=== PATIENT | female | born 1960 | race Caucasian/White ===

== ENCOUNTER 2016-11-01 17:21 | Emergency (ER) | payer BC ==
[2016-11-01 19:58] VITALS: BP 134/90
--- NOTE | 2016-11-01 20:31 | RAD ---
CLINICAL HISTORY: Hematuria and flank pain COMPARISON: Similar CT examination dated March 28, 2013 TECHNIQUE: Noncontrast CT examination of the abdomen and pelvis from the lung bases through the initial tuberosities. FINDINGS: VISUALIZED LUNG BASES: The visualized lung bases are grossly clear. There is no pleural effusion. ABDOMEN AND PELVIS: Evaluation of the solid organs and vasculature is limited without intravenous contrast. The liver, spleen, pancreas and adrenal glands are grossly normal in appearance. The gallbladder is normal. At the lower pole of the right kidney there is a 4 mm calcification. There is no right-sided hydroureter nephrosis. No renal calculi are identified in the right ureter or expected location of the ureter where it is not confidently visualized. At the left ureteropelvic junction (coronal image 50 of 92) there is a 5 mm calcification with very mild hydronephrosis on the left. There is an additional nonobstructing renal calculi in the lower pole collecting system. Distal to this the ureter is normal and there are no calculi in the urinary bladder lumen. The small and large bowel are not distended. There is no gross retroperitoneal or mesenteric lymphadenopathy. Multiple calcifications in the uterus are most consistent with chronic calcified fibroid. The abdominal aorta and iliac arteries are normal in course and diameter. Degenerative changes include multilevel loss of intervertebral disc height involving the lower thoracic and lumbar spine.There are no sinister bone lesions. IMPRESSION: 1. At the left ureteropelvic junction there is a 5 mm calcification with mild ipsilateral hydronephrosis. 2. Additional nonobstructing renal calculi are seen in the bilateral kidneys. 3. Chronic and degenerative findings as described in the body of the report.
[2016-11-01] MEDS ORDERED: Acetaminophen Codeine #4 (300 mg/60 mg) (NF) TAB PO PRN (20:41)
[2016-11-01] MEDS ORDERED: Ondansetron ODT TAB* 4 MG PO ONE (20:41)
[2016-11-01] MEDS ORDERED: Tamsulosin CAP* 0.4 MG PO ONE (20:46)
[2016-11-01] MEDS ORDERED: Acetaminop/Codeine 30 MG TAB* 1 TAB (300 MG/30 MG) PO ONE (20:47)
--- NOTE | 2016-11-01 20:50 | UC ---
Complaint Female HPI - HPI Summary HPI Summary: Patient has had increase urination, BISHOP, back pain , significant last night. has had kidney stones in the past, did have a large amount of blood in urine this morgning. - History Of Current Complaint Chief Complaint: UCGU Stated Complaint: URINARY Time Seen by Provider: 11/01/16 19:39 Hx Obtained From: Patient Hx Last Menstrual Period: ablation ?: No Onset/Duration: Sudden Onset, Lasting Days Timing: Intermittent, Lasting Hours Severity Initially: Moderate Severity Currently: Moderate Pain Intensity: 5 Pain Scale Used: 0-10 Numeric Character: Sharp, Dull, Burning Aggravating Factor(s): Movement, Urination Alleviating Factor(s): Position Associated Signs And Symptoms: Positive: Back Pain - Risk Factors Ectopic Risk Factor: Negative Ovarian Torsion Risk Factor: Negative - Allergies/Home Medications Allergies/Adverse Reactions: Allergies Allergy/AdvReac Type Severity Reaction Status Date / Time Oxycodone Allergy Severe Vomiting Verified 11/01/16 19:50 Penicillins Allergy Unknown Unknown Verified 11/01/16 19:50 Reaction Details Home Medications: Home Medications Biotin 5,000 mcg PO DAILY 11/01/16 [History Confirmed 11/01/16] Flaxseed (Linseed) [Flax Seed Oil 1000 mg] 1 cap PO DAILY 11/01/16 [History Confirmed 11/01/16] Phentermine HCl [Adipex-P] 37.5 mg PO DAILY 11/01/16 [History Confirmed 11/01/16 ] PMH/Surg Hx/FS Hx/Imm Hx Previously Healthy: Yes Cardiovascular History Of: Reports: Cardiac Disorders - MVP Denies: Hypertension Respiratory History Of: Reports: Asthma - Surgical History Surgical History: Yes Surgery Procedure, Year, and Place: Tonsillectomy,uterine embolization - Family History Known Family History: Positive: Hypertension - Social History Alcohol Use: Occasionally Substance Use Type: None Smoking Status (MU): Never Smoked Tobacco - Immunization History Most Recent Influenza Vaccination: 2886-1635 Review of Systems Constitutional: Fatigue Skin: Negative Eyes: Negative ENT: Negative Respiratory: Negative Cardiovascular: Negative Gastrointestinal: Negative, Other Genitourinary: Negative, Dysuria, Frequency, Urgency, Other - back pain Motor: Negative Neurovascular: Negative Musculoskeletal: Myalgia Neurological: Negative Psychological: Negative All Other Systems Reviewed And Are Negative: Yes Physical Exam Triage Information Reviewed: Yes Appearance: Well-Nourished, Ill-Appearing, Pain Distress Vital Signs: Initial Vital Signs Temp 99.3 F 11/01/16 19:51 Pulse 85 11/01/16 19:51 Resp 16 11/01/16 19:51 BP 134/90 11/01/16 19:51 Pulse Ox 98 11/01/16 19:51 Vital Signs Reviewed: Yes Eye Exam: Normal Eyes: Positive: Conjunctiva Clear ENT Exam: Normal ENT: Positive: Normal ENT inspection, Hearing grossly normal, Pharynx normal, TMs normal Dental Exam: Normal Neck exam: Normal Neck: Positive: Supple, Nontender, No Lymphadenopathy Respiratory Exam: Normal Respiratory: Positive: Chest non-tender, Lungs clear, Normal breath sounds Cardiovascular Exam: Normal Cardiovascular: Positive: RRR, No Murmur, Pulses Normal Abdomen Description: Positive: Nontender, No Organomegaly, Soft, CVA Tenderness (L) Bowel Sounds: Positive: Present Musculoskeletal Exam: Normal Musculoskeletal: Positive: Strength Intact, ROM Intact, No Edema Neurological Exam: Normal Neurological: Positive: Alert, Muscle Tone Normal Psychological Exam: Normal Skin Exam: Normal Complaint Female Dx - Course Course Of Treatment: hx obtained, exam performed, UA pos for blood, CT obtained , see report, recommend she follow up with her urologist tomorrow. meds given for pain, nausea. - Differential Dx/Diagnosis Differential Diagnosis/HQI/PQRI: Retained Foreign Body, Ureteral Stone, Urinary Tract Infection Provider Diagnoses: renal calculi. ipsilateral hydronephrosis, left Discharge - Discharge Plan Condition: Stable Disposition: HOME Prescriptions: Acetaminop/Codeine 30 MG TAB* [Tylenol/Codeine 30 MG TAB*] 1 - 2 tab PO Q6H PRN #30 tab MDD 8 tabs PRN Reason: Pain Prochlorperazine TAB* [Compazine Tab*] 5 mg PO Q6H PRN #28 tab PRN Reason: Nausea Tamsulosin CAP* [Flomax CAP*] 0.4 mg PO BEDTIME #7 cap Patient Education Materials: Kidney Stones (ED) Referrals: Cedric Kohler MD,Omari Ballesteros [Medical Doctor] - Ryann MARCOS,Bonny Phipps [Primary Care Provider] - Additional Instructions: Increase your fluid intake. take the medications as prescribed. Call for a urology appointment in the morning. If any uncontrolled pain, fever or decrease in urine output follow up.
[2016-11-01] MEDS ORDERED: Tamsulosin CAP* 0.4 MG PO SCH (21:00)
== END 2016-11-01 21:04 | disposition home or self-care (01) ==
LOC: UCCORT 17:21
DX: N13.2 Hydronephrosis with renal and ureteral calculous obstruction (principal); Z87.442 Personal history of urinary calculi; Z88.5 Allergy status to narcotic agent; Z88.0 Allergy status to penicillin
CPT/HCPCS: 74176; 87086; 99213; A9270-GY; G0463

== ENCOUNTER 2017-03-03 17:21 | Emergency (ER) | payer BC ==
[2017-03-03 18:27] VITALS: BP 131/69
--- NOTE | 2017-03-03 20:41 | UC ---
Ear Complaint HPI - HPI Summary HPI Summary: 57 female presents with complaints of ear pain b/l accompanied by subjective fever, sinus and nasal congestion that has been ongoing for the past 3-4 days. Patient states she is also very tired. Denies cough, difficulty breathing, chest pain, nausea, vomiting and sore throat. She has tried taking Sudafed without much relief. Has not tried anything else. Gets sinus infections often. Also admits to having drainage from her left ear that began today, states it is clear and denies blood. - History of Current Complaint Chief Complaint: UCGeneralIllness Stated Complaint: SINUS/EAR COMPLAINT Time Seen by Provider: 03/03/17 19:37 Hx Obtained From: Patient Hx Last Menstrual Period: ablation ?: No Onset/Duration: Sudden Onset, Lasting Days - 3-4 Severity Initially: Mild Severity Currently: Moderate Pain Intensity: 6 Pain Scale Used: 0-10 Numeric Aggravating Factors: Nothing Alleviating Factors: Nothing Associated Signs/Symptoms: Positive: Discharge Related History: Seasonal Allergies - Allergies/Home Medications Allergies/Adverse Reactions: Allergies Allergy/AdvReac Type Severity Reaction Status Date / Time Oxycodone Allergy Severe Vomiting Verified 03/03/17 18:18 Penicillins Allergy Unknown Unknown Verified 03/03/17 18:18 Reaction Details Home Medications: Home Medications Albuterol HFA INHALER* [Ventolin HFA Inhaler*] 1 - 2 puff INH Q6H PRN 03/03/17 [ History Confirmed 03/03/17] PMH/Surg Hx/FS Hx/Imm Hx Cardiovascular History: Other Other Cardiovascular History: MVP Respiratory History: Asthma Neurological History: Other Other Neurological History: lyme disease Psychological History: Post Traumatic Stress Disorder - Surgical History Surgical History: Yes Surgery Procedure, Year, and Place: Tonsillectomy,uterine embolization - Family History Known Family History: Positive: Hypertension - Social History Alcohol Use: Occasionally Substance Use Type: None Smoking Status (MU): Never Smoked Tobacco - Immunization History Most Recent Influenza Vaccination: [id number] Vaccination Up to Date: Yes Review of Systems Constitutional: Fever Skin: Negative ENT: Ear Ache, Nasal Discharge Respiratory: Negative Cardiovascular: Negative Gastrointestinal: Negative Musculoskeletal: Negative Neurological: Headache All Other Systems Reviewed And Are Negative: Yes Physical Exam Triage Information Reviewed: Yes Appearance: Well-Appearing - raspy voice upon speaking, No Pain Distress, Well- Nourished Vital Signs: Initial Vital Signs Temp 99.0 F 03/03/17 18:20 Pulse 89 03/03/17 18:20 Resp 16 03/03/17 18:20 BP 131/69 03/03/17 18:20 Pulse Ox 99 03/03/17 18:20 Vital Signs Reviewed: Yes Eyes: Positive: Conjunctiva Clear ENT: Positive: Hearing grossly normal, Pharynx normal - post nasal drip noted, Nasal congestion, TMs normal - right normal, normal EAC b/l, TM dull - retracted , left ear with clear drainage. no perforated TM noted. no blood in canal or sign of otitis externa., TM red, Muffled/hoarse voice - raspy voice. Negative: Nasal drainage, Tonsillar swelling, Tonsillar exudate, Trismus Dental: Positive: Percussion Tenderness @ - maxillary, Cervical Lymphadenopathy Neck: Positive: Supple, Nontender Respiratory: Positive: Chest non-tender, Lungs clear, Normal breath sounds, No respiratory distress, No accessory muscle use. Negative: Respiratory distress, Crackles, Rhonchi, Wheezing Cardiovascular: Positive: RRR, No Murmur, Pulses Normal Bowel Sounds: Positive: Present Musculoskeletal: Positive: Strength Intact, ROM Intact Neurological: Positive: Alert Skin Exam: Normal Ear Complaint Course/Dx - Course Course Of Treatment: will be treated for otitis media with cefdinir and due to drainage will also be given otic drops. continue singular and decongestants as desired. ibuprofen for pain and fever. follow up pcp. aware of worsening signs and symptoms to watch out for. fluids and rest. - Differential Dx/Diagnosis Differential Diagnosis/HQI/PQRI: Otitis Externa, Otitis Media, Perforated TM, Pharyngitis, URI, Other Provider Diagnoses: otitis media- left ear, sinusitis Discharge - Discharge Plan Condition: Stable Disposition: HOME Prescriptions: Cefdinir [Cefdinir 300 MG CAP] 300 mg PO BID #20 cap Ofloxacin 0.3% OTIC.CUCO* [Floxin 0.3% OTIC.CUCO*] 10 drop LEFT EAR BID #1 btl Patient Education Materials: Sinusitis (ED), Otitis Media (ED) Referrals: Ryann MARCOS,Bonny Phipps [Primary Care Provider] - Additional Instructions: Take prescribed antibiotic as directed for the next 10 days. Finish entire dose even if symptoms improve. Use prescribed ear drops as directed for the next 7 days. NSAIDs (ibuprofen) for fever and pain. Fluids, rest and follow up with PCP. If symptoms worsen or do not improve please return.
== END 2017-03-03 20:31 | disposition home or self-care (01) ==
LOC: UCCORT 17:21
DX: H66.92 Otitis media, unspecified, left ear (principal); J32.9 Chronic sinusitis, unspecified; I34.1 Nonrheumatic mitral (valve) prolapse; J45.909 Unspecified asthma, uncomplicated; Z88.5 Allergy status to narcotic agent; Z88.0 Allergy status to penicillin
CPT/HCPCS: 99212; G0463